=== PATIENT | female | born 1965 | race Two or more races ===

== ENCOUNTER 2024-08-22 08:46 | Emergency (ER) | payer OTHER ==
[~2024-08-22] VITALS: Ht 172.7 cm; Wt 96.2 kg
[2024-08-22] MEDS ORDERED: KETOROLAC TROMETHAMINE 60 MG VIAL IM STA (10:22)
[2024-08-22] MEDS ORDERED: TRIAMCINOLONE ACETONIDE 40 MG/ML VIAL IM STA (11:38)
== END 2024-08-22 11:50 | disposition home or self-care (01) ==
LOC: ER 08:48
DX: M25.561 Pain in right knee (principal)